=== PATIENT | female | born 1930 | race Caucasian/White ===

== ENCOUNTER 2018-06-02 15:19 | Emergency (ER) | payer OTHER ==
[~2018-06-02] VITALS: Ht 152.4 cm; Wt 42.9 kg
[~2018-06-02 15:19] MED LIST: CALCIUM 600 +1 EAC2 PO; DICYCLOMINE HCL10 MG PO; LISINOPRIL5 MG PO; LORATADINE10 M2 PO; OMEGA-31000 M1 PO; SERTRALINE HCL50 MG PO; VITAMIN B CO1 TABLET PO; VITAMIN B-650 MG PO; VITAMIN D1000 INTUN PO; VITAMIN E400 UNIT PO; VOLTAREN 1% GE100 GM TP
[2018-06-02 16:08] LABS: HEMATOCRIT 32.2 % (36.0-46.0); HEMOGLOBIN 10.6 G/DL (11.9-15.5); MCH 28.3 PG (29.0-34.0); MCHC 32.9 G/DL (30.0-36.0); MCV 86.1 FL (83-99); PLATELET COUNT 332 K/uL (156-360); RBC DIS.WIDTH-CV 12.9 % (11.8-14.6); RBC DIS.WIDTH-SD 40.7 % (39-53); RED BLOOD COUNT 3.74 M/uL (3.80-5.20); WHITE BLOOD COUNT 11.1 K/uL (4.1-10.2)
[2018-06-02 16:18] LABS: CHLORIDE 95 mEq/L (99-109); SODIUM 135 mEq/L (136-147)
[2018-06-02 16:20] LABS: GLUCOSE 140 mg/dL (70-99)
[2018-06-02 16:24] LABS: GFR ESTIMATE (CALCULATED) 55 mL/min/
[2018-06-02 16:25] LABS: UREA NITROGEN (BUN) 22 mg/dL (9-23)
[2018-06-02 18:01] LABS: ALBUMIN 4.3 g/dL (3.2-4.8)
[2018-06-02 18:04] LABS: TOTAL PROTEIN 7.6 g/dL (6.4-8.3)
[2018-06-02 18:06] LABS: TOTAL BILIRUBIN 0.9 mg/dL (0.0-1.0)
[2018-06-02 18:06] LABS: APPEARANCE SL.HAZY ((CLEAR)); BILIRUBIN NEGATIVE; BLOOD NEGATIVE; COLOR YELLOW ((YELLOW)); GLUCOSE (STRIP) NEGATIVE; KETONES NEGATIVE; LEUKOCYTES NEGATIVE; NITRITE NEGATIVE; PROTEIN (STRIP) 100; SPECIFIC GRAVITY 1.016 (1.000-1.030); UROBILINOGEN 0.2 MG/DL (0.2-1.0)
[2018-06-02 18:07] LABS: ALKALINE PHOSPHATASE 60 IU/L (3-129)
[2018-06-02 18:09] LABS: AST (GOT) 28 IU/L (2-34); DIRECT BILIRUBIN 0.3 mg/dL (0.0-0.3)
[2018-06-02 18:10] LABS: ALT (GPT) 18 IU/L (3-49); CREATINE KINASE 386 IU/L (1-294)
[2018-06-02 18:13] LABS: BACTERIA NONE SEEN /HPF; EPITHELIAL CELLS RARE /HPF; HYALINE CASTS 30-40 /LPF; MUCUS 2+ /LPF; RED BLOOD CELLS 0-5 /HPF (0-5); UCUL ADDED? NO; WHITE BLOOD CELLS 0-5 /HPF (0-5)
[2018-06-02 18:16] LABS: TROP-I INTERPRETATION NEGATIVE; TROPONIN-I 0.01 ng/mL (0.0-0.30)
[2018-06-02 18:46] LABS: LIPASE 24 U/L (1.0-51.0)
[2018-06-02 21:37] VITALS: BP 192/82
== END 2018-06-02 21:40 | disposition home or self-care (01) ==
LOC: EME 15:19
DX: S00.511A Abrasion of lip, initial encounter (principal); W08.XXXA Fall from other furniture, initial encounter; Y92.008 Other place in unspecified non-institutional (private) residence as the place of occurrence of the external cause; R41.0 Disorientation, unspecified; R10.13 Epigastric pain; I10 Essential (primary) hypertension; R73.03 Prediabetes; M81.0 Age-related osteoporosis without current pathological fracture; Z88.1 Allergy status to other antibiotic agents; Z88.8 Allergy status to other drugs, medicaments and biological substances
CPT/HCPCS: 70450; 71046; 72125; 76705; 80048; 80076; 81003; 82550; 83605; 83690; 84484; 85027; 87040; 93005; 99281; 99285; J7030